=== PATIENT | female | born 1980 | race Caucasian/White ===

== ENCOUNTER 2018-02-04 10:39 | Observation (INO) | payer OTHER ==
[~2018-02-04] VITALS: Ht 157.5 cm; Wt 60.3 kg
[2018-02-04] MEDS ORDERED: PNV1TABL76 MT (14:30)
== END 2018-02-04 14:45 | disposition home or self-care (01) ==
LOC: L&D 10:39
PROVIDERS: ADMIT Obstetrics & Gynecology; ATTEND Obstetrics & Gynecology
DX: Z04.3 Encounter for examination and observation following other accident (principal); Z3A.34 34 weeks gestation of pregnancy
CPT/HCPCS: 76805; 76818; 99281; G0378

== ENCOUNTER 2019-01-21 09:44 | Emergency (ER) | payer OTHER ==
[~2019-01-21] VITALS: Ht 157.5 cm; Wt 59.0 kg
[~2019-01-21 09:44] MED LIST: PNV1TABL76 MT
[2019-01-21 10:11] VITALS: BP 119/59
[2019-01-21] MEDS ORDERED: IPRATROPIUM BROMIDE (0.02%) 0.5MG/2.5ML NEB HHN STA (10:21)
[2019-01-21] MEDS ORDERED: ALBUTEROL (0.083%) 2.5MG/3ML NEB HHN STA (10:21)
== END 2019-01-21 12:16 | disposition home or self-care (01) ==
LOC: ER 09:44
DX: O26.891 Other specified pregnancy related conditions, first trimester (principal); J45.901 Unspecified asthma with (acute) exacerbation; Z3A.14 14 weeks gestation of pregnancy
CPT/HCPCS: 94640; 99283; J7611; Z7610